=== PATIENT | male | born 1955 | race Caucasian/White ===

== ENCOUNTER 2020-12-15 09:13 | Outpatient (CLI) | payer BC ==
[2020-12-15 23:47] LABS: SARS-CoV-2 PCR by NAA Not Detected (NotDetected)
== END 2020-12-15 09:14 | disposition home or self-care (01) ==
LOC: CSHLAB 09:13
PROVIDERS: ATTEND Internal Medicine
DX: Z01.812 Encounter for preprocedural laboratory examination (principal); Z20.822 Contact with and (suspected) exposure to COVID-19; Z12.11 Encounter for screening for malignant neoplasm of colon
CPT/HCPCS: U0003; U0005

== ENCOUNTER 2020-12-20 06:39 | Day surgery (SDC) | payer BC ==
[2020-12-17 12:22] VITALS: BMI 28.8
[2020-12-20] MEDS ORDERED: PROPOFOL 20 ML ONE ×3 (08:31→09:10)
[2020-12-20] MEDS ORDERED: Lidocaine 1% PF 5 ML VIAL ONE (08:32)
== END 2020-12-20 10:12 | disposition home or self-care (01) ==
LOC: CSHSDC 06:39
PROVIDERS: ATTEND Internal Medicine Gastroenterology
PROC: 0DJD8ZZ Inspection of Lower Intestinal Tract, Via Natural or Artificial Opening Endoscopic (ICD-10-PCS; principal; 2020-12-20)
DX: Z12.11 Encounter for screening for malignant neoplasm of colon (principal); K64.9 Unspecified hemorrhoids; Q43.8 Other specified congenital malformations of intestine
CPT/HCPCS: J2704